=== PATIENT | female | born 1995 | race Caucasian/White ===

== ENCOUNTER 2018-07-26 14:44 | Inpatient (IN) | payer OTHER ==
[~2018-07-26 14:44] MED LIST: Bupivacaine/Epinephrine 0.25% 30 ML VIAL ONE
[2018-07-26] MEDS ORDERED: Zolpidem Tartrate 5 MG TAB PO PRN (15:53)
[2018-07-26] MEDS ORDERED: Ondansetron PF 4 MG/2 ML Vial IVP PRN (15:53)
[2018-07-26] MEDS ORDERED: Butorphanol Tartrate 1 MG/ML VIAL SLOW IVP PRN (15:53)
[2018-07-26] MEDS ORDERED: Promethazine HCl 25 MG/ML VIAL IM PRN (15:53)
[2018-07-26] MEDS: Lactated Ringer's 1,000 ML IV SCH (23:00)
[2018-07-26 23:10] VITALS: BMI 40.3
[2018-07-26 23:37] LABS: Hemoglobin 10.6 g/dL (12.0-16.0); Mean Corpuscular HGB CONC 33.9 g/dL (32.0-36.0); Mean Corpuscular Hemoglobin 28.7 pg (27.0-31.0); Mean Corpuscular Volume 84.8 fL (78.0-98.0); Mean Platelet Volume 9.8 fL (7.4-10.4); Platelet Count 253 thou/uL (130-400); RBC Distribution Width 14.1 % (11.5-14.5); Red Blood Cell (RBC) Count 3.68 mill/uL (4.20-5.40); White Blood Cell (WBC) Count 13.2 thou/uL (4.8-10.8)
[2018-07-26 23:53] LABS: ALT (SGPT) 11 U/L (8-55); AST (SGOT) 13 U/L (5-34); Albumin 3.1 g/dL (3.5-5.0); Alkaline Phosphatase 149 U/L (40-150); Anion Gap 13 mmol/L (10-20); BUN (Urea Nitrogen) 6 mg/dL (7.0-18.7); Bilirubin, Total 0.2 mg/dL (0.2-1.2); Calc. Creatinine Clearance 257 mL/min (70-130); Calcium 8.6 mg/dL (7.8-10.44); Carbon Dioxide 18 mmol/L (22-29); Chloride 109 mmol/L (98-107); Estimated GFR-MDRD Greater than 90; Globulin 2.6 g/dL (2.4-3.5); Glucose 104 mg/dL (70-105); Potassium 3.7 mmol/L (3.5-5.1); Protein, Total 5.7 g/dL (6.0-8.3); Sodium 136 mmol/L (136-145)
[2018-07-26] MEDS ORDERED: Lidocaine 1% (PF) 30 ML VIAL SC PRN (23:59)
[2018-07-26] MEDS ORDERED: Ibuprofen 800 MG TAB PO PRN (23:59)
[2018-07-26] MEDS ORDERED: Misoprostol 200 MCG TAB PR PRN (23:59)
[2018-07-26] MEDS ORDERED: NS / Oxytocin 40 units/1000ml 1,000 ML IV PRN (23:59)
[2018-07-27] MEDS: NS w/ Oxytocin 10 units 500 ML IV SCH ×3 (00:02→19:43)
[2018-07-27 00:11] LABS: Syphilis Antibody Nonreactive (Nonreactive); Syphilis Antibody Index 0.03 S/CO (<1.00 Non-Reactive)
[2018-07-27 00:12] LABS: HBSAg Index 0.29 S/CO (0-0.99); Hep B Surf Ag Non-Reactive S/CO (NonReactive)
[2018-07-27] MEDS: Misoprostol 100 MCG TAB VAG SCH ×5 (03:05→17:48)
[2018-07-27] MEDS: Lactated Ringer's 1,000 ML IV SCH ×2 (07:00→16:03)
[2018-07-27] MEDS ORDERED: Fentanyl 4 mcg/Bup 0.1% Cadd 100 ML ONE ×2 (14:48→22:49)
[2018-07-27] MEDS ORDERED: Acetaminophen 325 MG TAB PO PRN (15:59)
[2018-07-27] MEDS ORDERED: ePHEDrine/0.9% NaCl/PF SYRINGE 50 mg/10 ml SLOW IVP PRN (15:59)
[2018-07-27] MEDS ORDERED: diphenhydrAMINE 50 MG/ML VIAL IVP PRN (15:59)
[2018-07-27] MEDS ORDERED: Eucerin (Mineral Oil/Petrolatum,White) 30 gm Jar TOP PRN (15:59)
[2018-07-27] MEDS ORDERED: Promethazine HCl 25 MG/ML VIAL IM PRN (15:59)
[2018-07-27] MEDS ORDERED: Lactated Ringer's 500 ML IV PRN (15:59)
[2018-07-27] MEDS ORDERED: Naloxone HCl 0.4 mg/ml Vial IVP PRN ×2 (15:59)
[2018-07-27] MEDS ORDERED: Ondansetron PF 4 MG/2 ML Vial IVP PRN (15:59)
[2018-07-27] MEDS ORDERED: Communication Order-Pharmacy FS SCH (16:00)
[2018-07-27] MEDS: Fentanyl 4 mcg/Bupivacaine 0.1% Cassette 100 ML EPIDURAL SCH (22:52)
[2018-07-28] MEDS: Lactated Ringer's 1,000 ML IV SCH ×2 (04:58→12:33)
[2018-07-28] MEDS ORDERED: Fentanyl 4 mcg/Bup 0.1% Cadd 100 ML ONE (05:30)
[2018-07-28] MEDS: Fentanyl 4 mcg/Bupivacaine 0.1% Cassette 100 ML EPIDURAL SCH (05:37)
[2018-07-28] MEDS: Misoprostol 100 MCG TAB VAG SCH ×3 (07:37→12:33)
[2018-07-28] MEDS ORDERED: Misoprostol 200 MCG TAB VAG PRN (09:00)
[2018-07-28] MEDS ORDERED: Adacel (T-DAP) 0.5 ML SYRINGE IM ONE (09:01)
[2018-07-28] MEDS ORDERED: Benzocaine-Menthol 82.5 ML CAN TOP PRN (09:01)
[2018-07-28] MEDS ORDERED: Lanolin Ointment 7 GM TUBE TOP PRN (09:01)
[2018-07-28] MEDS ORDERED: diphenhydrAMINE 25 MG CAP PO PRN (09:01)
[2018-07-28] MEDS ORDERED: Preparation H Ointment 28 GM TUBE PR PRN (09:01)
[2018-07-28] MEDS ORDERED: Bisacodyl 10 MG SUPP PR PRN (09:01)
--- NOTE | 2018-07-28 09:04 | PDOC.OPDEL ---
OB Operative/Delivery Note Delivery Dr/Surgeon: Jalyn Pre-Delivery Diagnosis: medically indicated induction Procedure/Post Delivery Dx: operative vaginal delivery Weeks gestation: 38 Anesthesia: epidural - Findings A Sex: male Weight: 8 lb 4 oz - 1 min: 8 - 5 min: 9 - Additional Findings/Plan Placenta delivered: spontaneous Repaired Obstetrical Laceration: 3rd degree (1/2 of capsule intact.) Estimated blood loss: 725 ml qbl Post delivery plan: routine recovery
[2018-07-28] MEDS: Ibuprofen 800 MG TAB PO SCH ×2 (09:36→22:22)
[2018-07-28] MEDS: NS / Oxytocin 40 units/1000ml 1,000 ML IV SCH ×3 (09:37→11:53)
[2018-07-28] MEDS: traMADol HCl 50 MG TAB PO PRN (13:14)
[2018-07-28] MEDS: Docusate Calcium (SURFAK) 240 MG CAP PO SCH ×2 (16:38→22:20)
[2018-07-28] MEDS: Ferrous Sulfate 325 MG TAB PO SCH (16:38)
[2018-07-29] MEDS: Ibuprofen 800 MG TAB PO SCH ×3 (05:58→21:31)
[2018-07-29 07:25] LABS: Hemoglobin 8.6 g/dL (12.0-16.0); Mean Corpuscular HGB CONC 32.5 g/dL (32.0-36.0); Mean Corpuscular Hemoglobin 28.9 pg (27.0-31.0); Mean Corpuscular Volume 88.7 fL (78.0-98.0); Mean Platelet Volume 9.3 fL (7.4-10.4); Platelet Count 190 thou/uL (130-400); RBC Distribution Width 14.6 % (11.5-14.5); Red Blood Cell (RBC) Count 2.99 mill/uL (4.20-5.40); White Blood Cell (WBC) Count 12.8 thou/uL (4.8-10.8)
--- NOTE | 2018-07-29 08:47 | PRG ---
DATE OF SERVICE: 07/29/2018 SUBJECTIVE: The patient is day 1, status post a term operative delivery with forceps, complicated by a third-degree laceration and quantitative blood loss of 725 mL. The patient this morning reports that she is tolerating p.o., voiding on her own, having decreased lochia and good pain control. OBJECTIVE: VITAL SIGNS: Blood pressure is 111/59, temperature 98.1, pulse of 81, respiratory rate of 16. GENERAL: She appears to be in no acute distress. She is alert and oriented, cooperative and pleasant to interact with. HEENT: Head is normocephalic, atraumatic. Fundus is firm. EXTREMITIES: Nontender. She has significant bilateral edema, but is symmetrical. LABORATORY DATA: Her postdelivery hemoglobin is 8.6, hematocrit 26.5, and platelets are 190,000. ASSESSMENT AND PLAN: The patient is day 1, status post operative forceps delivery at term, complicated by third-degree laceration and a blood loss of 725 mL. The patient will continue postoperative care with anticipation of discharge tomorrow. Job ID: [id number]
[2018-07-29] MEDS: Docusate Calcium (SURFAK) 240 MG CAP PO SCH ×2 (08:54→21:32)
[2018-07-29] MEDS: Milk Of Magnesia 30 ML UDCUP PO PRN (08:54)
[2018-07-29] MEDS: Ferrous Sulfate 325 MG TAB PO SCH ×2 (08:54→16:39)
[2018-07-29] MEDS: traMADol HCl 50 MG TAB PO PRN (16:43)
[2018-07-30] MEDS: Ibuprofen 800 MG TAB PO SCH ×2 (05:22→14:03)
--- NOTE | 2018-07-30 08:04 | PDOC.PP ---
Post Progress Note Post Day #: 2. Subjective: Normal bowel movements x 2... PO intake tolerated: yes Flatus: yes Ambulation: yes Vital Signs (12 hours) Temp Pulse Resp BP Pulse Ox 07/30/18 05:20 98.3 F 99 20 120/64 97 07/29/18 23:40 98.9 F 95 18 129/60 99 Weight Weight 250 lb - Physical Examination Abdominal: + bowel sounds, lochia, no distention, appropriately TTP Result Diagrams: 07/29/18 07:13 07/26/18 23:23 Additional Labs: Post Labs Blood Type O POSITIVE 07/26/18 23:46 Hep Bs Antigen Non-Reactive S/CO (NonReactive) 07/26/18 23:23 - Assessment/Plan Post day 2 from forceps assited vaginal delivery. Third degree. Progressing well. Asymptomatic anemia. discharge home. F/u 6 weeks.
[2018-07-30 08:15] VITALS: BP 118/68; TEMP 98.2
[2018-07-30] MEDS: Ferrous Sulfate 325 MG TAB PO SCH (08:54)
[2018-07-30] MEDS: Milk Of Magnesia 30 ML UDCUP PO PRN (08:55)
[2018-07-30] MEDS: Docusate Calcium (SURFAK) 240 MG CAP PO SCH (08:55)
== END 2018-07-30 16:25 | disposition home or self-care (01) | DRG 768 ==
LOC: L&D 22:16 → 3SW 07-28 15:13 → EDSTATUS 08-10 14:43
PROVIDERS: ADMIT Obstetrics & Gynecology; ATTEND Obstetrics & Gynecology
PROC: 10D07Z5 Extraction of Products of Conception, High Forceps, Via Natural or Artificial Opening (ICD-10-PCS; principal; 2018-07-28)
PROC: 0DQR0ZZ Repair Anal Sphincter, Open Approach (ICD-10-PCS; 2018-07-28)
PROC: 10907ZC Drainage of Amniotic Fluid, Therapeutic from Products of Conception, Via Natural or Artificial Opening (ICD-10-PCS; 2018-07-28)
PROC: 3E0P7VZ Introduction of Hormone into Female Reproductive, Via Natural or Artificial Opening (ICD-10-PCS; 2018-07-28)
PROC: 3E033VJ Introduction of Other Hormone into Peripheral Vein, Percutaneous Approach (ICD-10-PCS; 2018-07-28)
DX: O13.4 Gestational [pregnancy-induced] hypertension without significant proteinuria, complicating childbirth (principal); Z37.0 Single live birth; Z3A.38 38 weeks gestation of pregnancy; O69.81X0 Labor and delivery complicated by cord around neck, without compression, not applicable or unspecified; O75.81 Maternal exhaustion complicating labor and delivery; O70.20 Third degree perineal laceration during delivery, unspecified; O99.02 Anemia complicating childbirth; D64.9 Anemia, unspecified
CPT/HCPCS: 36415; 51702; 80053; 85027; 86780; 86850; 86900; 86901; 87340; 90715; J2001; J2590